=== PATIENT | male | born 1960 | race Caucasian/White ===

== ENCOUNTER → 2020-10-04 | Outpatient (CLI) | payer OTHER, BC ==
--- NOTE | 2020-10-04 10:08 | REP ---
INDICATION: PAIN. COMPARISON: None. TECHNIQUE: Four views of the right elbow are provided. FINDINGS: There is moderate osteoarthritic spurring at the ulnotrochlear and radiocapitellar articulations consistent with elbow osteoarthritis. There is periarticular os effect density at the medial aspect of the elbow just distal to the medial epicondyle. There is a 2nd smaller ossicle in this location as well. Fragmented spurring is seen in the coronoid process. I cannot exclude intra-articular loose body. No bony erosive or destructive lesion is seen. No evidence of joint effusion. IMPRESSION: Moderate osteoarthritis changes. Periarticular osteophytic densities question loose body. <Electronically signed by Fred Lake > 10/04/20 [id number]
== END ==
LOC: M SOG 09:46
PROVIDERS: ATTEND Orthopaedic Surgery Sports Medicine
DX: M25.521 Pain in right elbow (principal)

== ENCOUNTER → 2020-11-29 | Outpatient (CLI) | payer OTHER, BC ==
[~2020-11-29] MED LIST: ALPR0.5T3 PO; AMIT-257 PO; MELO15TA28 PO; NO ITAB PO; SAW1CAPS2 PO; SYNT125T PO
== END ==
LOC: M LABSMTC 09:12
PROVIDERS: ATTEND Anesthesiology
DX: Z01.812 Encounter for preprocedural laboratory examination (principal); Z20.822 Contact with and (suspected) exposure to COVID-19

== ENCOUNTER 2020-12-04 07:56 | Day surgery (SDC) | payer BC, OTHER ==
[~2020-12-04] VITALS: Ht 180.3 cm; Wt 85.8 kg
[~2020-12-04 07:56] MED LIST changes: +LR 1,000 ML IV ONE; +ceFAZolin SOD 2 GM in IV 1 EA IV ONE
[2020-12-04] MEDS ORDERED: propofoL 200 MG/20 ML VIAL As Ordered ONE (07:59)
[2020-12-04] MEDS ORDERED: ONDANSETRON 4MG/2ML VIAL As Ordered ONE (07:59)
[2020-12-04] MEDS ORDERED: fentaNYL 100 MCG/2 ML INJECTION (J3010) As Ordered ONE (07:59)
[2020-12-04] MEDS ORDERED: ROCURONIUM BROMIDE 50 MG/5 ML VIAL As Ordered ONE (07:59)
[2020-12-04] MEDS ORDERED: dexameTHASONE 4 MG/ML 1ML VIAL (J1100 PER 1MG) As Ordered ONE (07:59)
[2020-12-04] MEDS ORDERED: SUGAMMADEX SODIUM 500 MG/5 ML VIAL (BRIDION) As Ordered ONE (07:59)
[2020-12-04] MEDS ORDERED: LIDOCAINE 2% 100MG/5ML SDV (FOR ANES.) As Ordered ONE (07:59)
[2020-12-04] MEDS ORDERED: MIDAZOLAM INJ 2MG/2ML VIAL (J2250 PER 1MG) As Ordered ONE (09:59)
[2020-12-04] MEDS ORDERED: BUPIVACAINE/EPIN 0.25% 30 ML VIAL As Ordered ONE (10:33)
[2020-12-04] MEDS ORDERED: ACETAMINOPHEN 1000MG 100ML IV BTL (OFIRMEV) (J0131 PER 10MG) As Ordered ONE (10:50)
[2020-12-04] MEDS ORDERED: ONDANSETRON 4MG/2ML VIAL IV PRN ×2 (12:05→12:35)
[2020-12-04] MEDS ORDERED: LR 1,000 ML IV SCH ×2 (12:05→12:30)
[2020-12-04] MEDS ORDERED: fentaNYL 100 MCG/2 ML INJECTION (J3010) IV PRN (12:05)
[2020-12-04] MEDS ORDERED: oxyCODONE 5MG TAB PO PRN (12:05)
[2020-12-04] MEDS ORDERED: ACETAMINOPHEN TAB 650MG DOSE (2X325MG) PO PRN (12:30)
[2020-12-04] MEDS ORDERED: MORPHINE 2 MG/ML 1ML VIAL (J2270) IV PRN (12:30)
[2020-12-04] MEDS ORDERED: PERCOCET 5MG/325MG TAB PO PRN (12:30)
[2020-12-04] MEDS: HYDROMORPHONE HCL 0.5 MG/ 0.5 ML SYRINGE (J1170 PER 1) IV PRN ×2 (12:48→12:53)
[2020-12-04 14:00] VITALS: BP 120/75
--- NOTE | 2020-12-04 14:27 | ROOPDOC ---
[facility] Report Of Operation Report of Operation DATE OF PROCEDURE: 12/04/20 PREPROCEDURE DIAGNOSES: Right elbow lateral epicondylitis and loose bodies. POSTPROCEDURE DIAGNOSES: Same. PROCEDURE PERFORMED: Right elbow arthroscopy, debridement, removal loose bodies. SURGEON: Dr. Jose L Fisher MD FRINGE KNOTTER: ANESTHESIA: General anesthesia Dr. Quintana. ESTIMATED BLOOD LOSS: Approximately 25 mL. COMPLICATIONS: None. REMARKS: None. FINDINGS: Loose body anteriorly and posteriorly SPECIMENS REMOVED: Loose bodies anteriorly and posteriorly PROCEDURE NOTE: This 60-year-old man had multiple elbow ulnar nerve transposition surgeries. He complained of locking and mechanical symptoms, and lateral elbow pain. MRI was consistent with loose bodies as well as lateral epicondylitis. We discussed the pros and cons risk benefits continue nonsur gical management versus surgical intervention. I again reminded him of slight increased risk due to the ulnar nerve transposition. He wished to proceed and marked the right upper extremity.. DESCRIPTION OF PROCEDURE: Patient was brought to the operating room theater. They were administered 2 g of IV Ancef prior to the start of the procedure. General anesthesia was induced. The patient was placed right lateral decubitus beanbag positioner axillary roll placed all bony prominences padded. SCDs used on the legs. [employer] arm positioner used. 18 inch tourniquet applied appropriately padded. Arm affixed to the positioner using the strap. Upper extremity prepped and draped in the usual sterile fashion with chlorhexidine- based prep solution allowing over 3 minutes drying time prior to draping. Preoperative timeout performed to confirm the site patient and surgery. I began by making a small mini open incision at the anteromedial aspect of the elbow anterior to the intermuscular septum, 2cm proximal and 1cm anterior to the medial epicondyle. The ulnar nerve did feel preoperatively like it was transposed anteriorly, and the patient himself could feel me palpating the nerve preoperatively, and so I made sure to palpate this identify it and keep the po rtal slightly anteriorly to this. I insufflated the joint with 20 cc of normal saline through the soft spot portal. I inserted the arthroscope into the intra- articular portion of the anterior compartment of the elbow. Then used spinal needle inside-out localization to perform the anterolateral portal, 2cm proximal and 1 cm lateral to lateral epicondyle. There was some areas more anteriorly superiorly at the capitellum area where there is full-thickness cartilage loss but this was mostly non articular area, sonme grade 2 changes at articular area, and at the radial head there was grade 1 softening as well as on the medial side grade 1 softening on both sides of the joint. There is a loose body at the anterior medial aspect of the distal humerus that I removed in pieces using shaving instrument as well as a pituitary instrument. I did some gentle debridement for some mild hypertrophic synovium anteriorly. I performed a complete debridement of the undersurface ECRB tendon in a triangle fashion until the muscular belly of ECRL was showing staying above the equator of the radial head to avoid damage to the ligamentous complex. I did some gentle debridement at the origin of the ECRB as well. There is also some frayed cartilage of the rim radial head that I gently debrided as well. I used a switching stick to insert the scope through the anterolateral portal as well to examine the entire intra-articular extent of the joint and ensure full removal of the loose body. I then used a direct posterior as well as posterior lateral arthroscopy portals to work in the posterior compartment of the elbow. These are approximately 3 cm proximal to the tip of the olecranon. Loose body was identified and removed. I also did some gentle debriding at the tip of the olecranon given the osteophyte on the MRI as well as the posterior medial aspect of the elbow where there is an obvious impingement there. Arthroscopy pictures were taken and saved onto the system throughout the case. Loose bodies sent to pathology. Case was terminated. 4 cc of quarter percent Marcaine with epinephrine was instilled in and around the portal sites. Portals closed with 3-0 Ethilon sutures. Skin was cleaned with wet and dry dressing follow-up application of Adaptic 4 x 8 gauze abdominal pad dressings and 6 inch Seun bandage. Patient's upper extremity placed into a sling. Case was terminated. Patient placed supine woken up from general anesthetic transferred off the operating room table and taken to postanesthetic care unit in stable condition. All sponge needle instrument counts were correct no complications plan to the patient follow-up in 2 weeks time. Start immediate hand wrist and elbow exercises gently no heavy lifting or gripping for the first 6 weeks. Risk factors for harms from taking opioid medications discussed and assessed including but not limited to personal or family history of substance use disorder, anxiety or depression, , age 65 or older, COPD or other underlying respiratory conditions, and renal or hepatic insufficiency. Discussed with patient concerns and determined any harms they may experience or be currently experiencing such as nausea or constipation, feeling sedated or confused, breathing interruptions during sleep, or taking or craving more opioids than prescribed or difficulty controlling use (addiction). Discussed early warning signs of overdose including confusion, sedation, slurred speech, abnormal gait. Postoperative wound instructions were given. It was recommended to keep the wound clean and dry. Dressing changes as needed. It was reinforced with the patient that they should call us or be seen immediately for redness, drainage, or fever. JOSE L FISHER MD Dec 04, 2020 14:27
[2020-12-04] MEDS ORDERED: PROHANCE 279.3MG/ML 15ML VIAL As Ordered ONE (21:32)
== END 2020-12-04 14:05 | disposition home or self-care (01) ==
LOC: M SDC 07:56
PROVIDERS: ATTEND Orthopaedic Surgery Sports Medicine
DX: M77.11 Lateral epicondylitis, right elbow (principal); M24.021 Loose body in right elbow; E03.9 Hypothyroidism, unspecified; K21.9 Gastro-esophageal reflux disease without esophagitis; Z79.899 Other long term (current) drug therapy; Z88.2 Allergy status to sulfonamides
CPT/HCPCS: 29834; 29837; 88304; A9576; J0131; J0690; J1100; J1170; J2250; J2405; J3010

== ENCOUNTER → 2021-06-10 | Outpatient (CLI) | payer OTHER ==
[~2021-06-10] MED LIST changes: -LR 1,000 ML IV ONE; -ceFAZolin SOD 2 GM in IV 1 EA IV ONE
== END ==
LOC: M SOG 09:58
PROVIDERS: ATTEND Orthopaedic Surgery
DX: M25.522 Pain in left elbow (principal)

== ENCOUNTER → 2021-10-05 | Outpatient (CLI) | payer OTHER | LOC: M LABSMTC 09:33 | PROVIDERS: ATTEND Anesthesiology | DX: Z01.812 Encounter for preprocedural laboratory examination (principal); Z20.822 Contact with and (suspected) exposure to COVID-19 ==

== ENCOUNTER 2021-10-08 08:20 | Day surgery (SDC) | payer OTHER ==
[~2021-10-08] VITALS: Ht 180.3 cm; Wt 85.0 kg
[~2021-10-08 08:20] MED LIST changes: +NS 1,000 ML IV ONE
[2021-10-08] MEDS ORDERED: propofoL 200 MG/20 ML VIAL As Ordered ONE (10:24)
[2021-10-08] MEDS ORDERED: LIDOCAINE 2% 100MG/5ML SDV (FOR ANES.) As Ordered ONE (10:24)
[2021-10-08 10:50] VITALS: BP 120/80
== END 2021-10-08 11:02 | disposition home or self-care (01) ==
LOC: M OPP 08:20
PROVIDERS: ATTEND Internal Medicine Gastroenterology
DX: Z12.11 Encounter for screening for malignant neoplasm of colon (principal); D12.6 Benign neoplasm of colon, unspecified; K64.0 First degree hemorrhoids; E03.9 Hypothyroidism, unspecified; K21.9 Gastro-esophageal reflux disease without esophagitis; M19.90 Unspecified osteoarthritis, unspecified site; Z88.2 Allergy status to sulfonamides; Z79.899 Other long term (current) drug therapy

== ENCOUNTER → 2021-12-11 | Outpatient (CLI) | payer OTHER ==
[~2021-12-11] MED LIST changes: -NS 1,000 ML IV ONE
== END ==
LOC: M SOG 11:33
PROVIDERS: ATTEND Orthopaedic Surgery Hand Surgery
DX: M79.641 Pain in right hand (principal)

== ENCOUNTER → 2022-11-18 | Outpatient (CLI) | payer OTHER ==
[2022-11-18 18:11] LABS: THYROID STIMULATING HORMONE 2.714 uIU/ML (0.55-4.78)
[2022-11-18 18:12] LABS: FREE T4 1.09 NG/DL (0.89-1.76)
== END ==
LOC: M WUC 11:24
PROVIDERS: ATTEND Nurse Practitioner Family
DX: E03.9 Hypothyroidism, unspecified (principal)

== ENCOUNTER → 2023-02-17 | Outpatient (CLI) | payer OTHER ==
[2023-02-17 14:43] LABS: FREE T4 1.01 NG/DL (0.89-1.76); THYROID STIMULATING HORMONE 11.766 uIU/ML (0.55-4.78)
== END ==
LOC: M PLALAB 10:24
PROVIDERS: ATTEND Nurse Practitioner Family
DX: E03.9 Hypothyroidism, unspecified (principal)

== ENCOUNTER → 2023-05-12 | Outpatient (CLI) | payer OTHER | LOC: M WHC 07:31 | PROVIDERS: ATTEND Physician Assistant | DX: N63.10 Unspecified lump in the right breast, unspecified quadrant (principal); N64.4 Mastodynia | CPT/HCPCS: 77066; G0279 ==

== ENCOUNTER → 2023-06-10 | Outpatient (CLI) | payer OTHER ==
[2023-06-10 16:54] LABS: FREE T4 0.94 NG/DL (0.89-1.76); THYROID STIMULATING HORMONE 3.183 uIU/ML (0.55-4.78)
== END ==
LOC: M PLALAB 12:24
PROVIDERS: ATTEND Nurse Practitioner Family
DX: E03.9 Hypothyroidism, unspecified (principal)

== ENCOUNTER → 2023-10-07 | Outpatient (CLI) | payer OTHER ==
[2023-10-07 13:38] LABS: THYROID STIMULATING HORMONE 3.139 uIU/ML (0.55-4.78)
[2023-10-07 13:41] LABS: FREE T4 1.18 NG/DL (0.89-1.76)
== END ==
LOC: M PLALAB 10:48
PROVIDERS: ATTEND Nurse Practitioner Family
DX: E06.3 Autoimmune thyroiditis (principal)

== ENCOUNTER 2024-03-07 18:12 | Inpatient (IN) | payer MEDICARE, OTHER ==
[2024-03-07] MEDS ORDERED: LABETALOL 100MG/20ML VIAL As Ordered ONE (18:47)
[2024-03-07] MEDS ORDERED: ISOVUE-370 76% 100ML VIAL As Ordered ONE (18:49)
[2024-03-07 18:52] LABS: BASO % 0.5 % (0.0-1.0); EOS # 0.2 10^3/uL (0.0-0.5); EOS % 2.3 % (0.0-3.0); HEMATOCRIT 48.1 % (42.0-52.0); HEMOGLOBIN 16.5 g/dl (13.5-17.5); LYMPH # 1.6 10^3/uL (1.5-5.0); LYMPH % 20.7 % (24.0-44.0); MEAN CORPUSCULAR HEMOGLOBIN 31.3 pg (27.0-33.0); MEAN CORPUSCULAR HGB CONC 34.3 g/dl (32.0-36.5); MEAN CORPUSCULAR VOLUME 91.1 fl (80.0-96.0); MONO # 0.6 10^3/uL (0.0-0.8); MONO % 7.8 % (2.0-8.0); NEUTROPHILS # 5.2 10^3/uL (1.5-8.5); NEUTROPHILS % 68.6 % (36.0-66.0); PLATELET COUNT, AUTOMATED 206 10^3/uL (150-450); RED BLOOD COUNT 5.28 10^6/uL (4.30-6.10); WHITE BLOOD COUNT 7.6 10^3/uL (4.0-10.0)
[2024-03-07] MEDS: LABETALOL 100MG/20ML VIAL IV STA ×2 (18:53→20:16)
[2024-03-07 19:08] LABS: INR 0.89; PARTIAL THROMBOPLASTIN TIME 27.5 SECONDS (24.8-34.2); PROTHROMBIN TIME 12.3 SECONDS (12.5-14.5)
[2024-03-07 19:19] LABS: CK-MB VALUE MASS 1.6 NG/ML (<3.6)
[2024-03-07 19:20] LABS: BLOOD UREA NITROGEN 21 MG/DL (9-23); CALCIUM LEVEL 9.7 MG/DL (8.3-10.6); CARBON DIOXIDE LEVEL 31 MMOL/L (20-31); CHLORIDE LEVEL 103 MMOL/L (98-107); CREATININE FOR GFR 0.77 MG/DL (0.70-1.30); GLOMERULAR FILTRATION RATE > 60.0 (>49); GLUCOSE, FASTING 163 MG/DL (74-106); POTASSIUM SERUM 3.7 MMOL/L (3.5-5.1); SODIUM LEVEL 142 MMOL/L (136-145)
[2024-03-07 19:27] LABS: CPK CREATINE PHOSPHOKINASE 119 U/L (46-171); MB/CK RELATIVE INDEX 1.34 (< OR =4)
[2024-03-07] MEDS ORDERED: LISI20TA33 PO (20:04)
[2024-03-07] MEDS ORDERED: SILD100T PO (20:04)
[2024-03-07] MEDS ORDERED: PRAV40TA2 PO (20:04)
[2024-03-07] MEDS ORDERED: MELO15TA28 PO (20:04)
[2024-03-07] MEDS ORDERED: OMEP-173 PO (20:04)
[2024-03-07] MEDS ORDERED: HOME MED LIST COMPLETE! XX SCH (20:05)
[2024-03-07] MEDS ORDERED: MAALOX 30 ML SUSP *UDC PO PRN (21:00)
[2024-03-07] MEDS ORDERED: ACETAMINOPHEN 325 MG TAB PO PRN (21:00)
[2024-03-07] MEDS ORDERED: MOM 30ML SUSPENSION UDC PO PRN (21:00)
[2024-03-07] MEDS: DOCUSATE SODIUM 100MG CAPSULE PO SCH (21:48)
[2024-03-07] MEDS: ALPRAZolam 0.5 MG TAB PO SCH (21:48)
[2024-03-07] MEDS: PRAVASTATIN 20 MG TAB PO SCH (21:48)
[2024-03-07] MEDS: CAPTOpril 6.25 MG PER 1/2 TABLET PO SCH (22:00)
[2024-03-07] MEDS ORDERED: LEVO150T7 PO (22:00)
[2024-03-07 22:46] VITALS: BP 166/88; TEMP 98.3; O2SAT 96
[2024-03-07 23:00] VITALS: BP 166/88; TEMP 98.3; O2SAT 96
[2024-03-07] MEDS: AMITRIPTYLINE 50 MG TAB PO SCH (23:11)
[2024-03-08] VITALS (8 sets, daily range): BP systolic 144–174; BP diastolic 80–108; TEMP 97.3–97.7; O2SAT 92–96
[2024-03-08] MEDS: LEVOTHYROXINE 150MCG TABLET (0.15MG) PO SCH (06:00)
[2024-03-08] MEDS ORDERED: LEVOTHYROXINE 75MCG TABLET (0.075MG) PO SCH (06:00)
[2024-03-08 08:08] LABS: HEMOGLOBIN 15.4 g/dl (13.5-17.5); MEAN CORPUSCULAR HEMOGLOBIN 31.1 pg (27.0-33.0); MEAN CORPUSCULAR HGB CONC 34.2 g/dl (32.0-36.5); MEAN CORPUSCULAR VOLUME 90.9 fl (80.0-96.0); PLATELET COUNT, AUTOMATED 203 10^3/uL (150-450); RED BLOOD COUNT 4.95 10^6/uL (4.30-6.10)
[2024-03-08 08:27] LABS: BLOOD UREA NITROGEN 21 MG/DL (9-23); CALCIUM LEVEL 8.9 MG/DL (8.3-10.6); CARBON DIOXIDE LEVEL 28 MMOL/L (20-31); CHLORIDE LEVEL 105 MMOL/L (98-107); CREATININE FOR GFR 0.73 MG/DL (0.70-1.30); GLOMERULAR FILTRATION RATE > 60.0 (>49); GLUCOSE, FASTING 139 MG/DL (74-106); POTASSIUM SERUM 3.4 MMOL/L (3.5-5.1); SODIUM LEVEL 143 MMOL/L (136-145)
[2024-03-08] MEDS ORDERED: TELMISARTAN 20 MG TAB PO SCH (09:00)
[2024-03-08] MEDS ORDERED: amLODIPine 5 MG TAB PO SCH (09:00)
[2024-03-08] MEDS ORDERED: LISI20TA33 PO (16:19)
[2024-03-08] MEDS ORDERED: AMLO1TAB25 PO (16:19)
== END 2024-03-08 17:06 | disposition home or self-care (01) | DRG 305 ==
LOC: M ED 18:12 → M ED INP 20:57 → M PCU 22:52
PROVIDERS: ADMIT Student in an Organized Health Care Education/Training Program; ATTEND Internal Medicine Nephrology
DX: I16.0 Hypertensive urgency (principal); I10 Essential (primary) hypertension; E03.9 Hypothyroidism, unspecified; K21.9 Gastro-esophageal reflux disease without esophagitis; E78.5 Hyperlipidemia, unspecified; F41.9 Anxiety disorder, unspecified; Z88.2 Allergy status to sulfonamides; Z79.899 Other long term (current) drug therapy

== ENCOUNTER → 2024-05-15 | Outpatient (CLI) | payer OTHER ==
[~2024-05-15] MED LIST changes: +AMLO1TAB25 PO; +LEVO150T7 PO; +LISI20TA33 PO; +OMEP-173 PO; +PRAV40TA2 PO; +SILD100T PO
[2024-05-15 15:51] LABS: FREE T4 1.36 NG/DL (0.89-1.76)
[2024-05-15 15:52] LABS: THYROID STIMULATING HORMONE 6.793 uIU/ML (0.55-4.78)
== END ==
LOC: M PLALAB 12:34
PROVIDERS: ATTEND Nurse Practitioner Family
DX: E06.3 Autoimmune thyroiditis (principal)

== ENCOUNTER → 2024-10-03 | Outpatient (REF) | payer OTHER ==
[~2024-10-03] MED LIST changes: -PRAV40TA2 PO; +PRAV40TA85 PO
[2024-10-03 18:22] LABS: CREATININE FOR GFR 0.97 MG/DL (0.70-1.30); GLOMERULAR FILTRATION RATE 86.1 (>49)
== END ==
LOC: M LABWUC 17:26
PROVIDERS: ATTEND Nurse Practitioner Adult Health
DX: Z00.00 Encounter for general adult medical examination without abnormal findings (principal); M54.50 Low back pain, unspecified